=== PATIENT | female | born 1955 | race Caucasian/White ===

== ENCOUNTER 2025-06-29 14:13 | Outpatient (CLI) | payer MEDICARE, SELFPAY ==
--- NOTE | ~2025-06-29 | CT_ITS ---
EXAMINATION: CT abdomen pelvis wo/w con DATE: 06/29/2025 15:01 INDICATION: Gross hematuria. TECHNIQUE: Computed tomography (CT) of the abdomen and pelvis was performed without and with intravenous contrast using a total of 130 mL Omnipaque-350 intravenous contrast with a double-bolus technique for simultaneous opacification of the renal parenchyma and renal collecting system. Automated exposure control and iterative reconstruction technique were employed. The dose- length product was 2707.76 mGy-cm. COMPARISON: None FINDINGS: The visualized portions of the lung bases demonstrate mild atelectasis. No pleural effusion. The heart size is normal. There are coronary artery calcifications. No pericardial effusion. There is a moderate-sized sliding hiatal hernia. There are cysts in the liver measuring up to 3.1 cm. There are changes of cholecystectomy. The spleen, pancreas, adrenal glands, and kidneys are normal. There is no urolithiasis. The ureters are well opacified and are normal. The bladder is normal. There is diverticulosis of the colon without evidence of diverticulitis. There are no dilated loops of bowel. The appendix is not visualized. There are no pathologically enlarged lymph nodes. There is no free intraperitoneal fluid. There is moderate thoracic spondylosis and severe lumbar spondylosis. There are chronic compression fractures of T11 and T12. IMPRESSION: 1. No etiology for hematuria. 2. Moderate-sized sliding hiatal hernia. Reviewed, dictated and finalized at location E.
[2025-06-29 14:44] LABS: Estimated Glomerular Filt Rate > 60
== END 2025-06-29 14:14 | disposition home or self-care (01) ==
PROVIDERS: Visit Provider Physician Assistant
DX: K44.9 Diaphragmatic hernia without obstruction or gangrene (principal); R31.0 Gross hematuria
CPT/HCPCS: 74178; Q9967